=== PATIENT | female | born 1980 | race Two or more races ===

== ENCOUNTER 2020-12-15 02:11 | Emergency (ER) | payer OTHER ==
[~2020-12-15] VITALS: Ht 149.9 cm; Wt 48.5 kg
[2020-12-15] MEDS ORDERED: LEVSIN/SL0.125 MG SL (12:29)
[2020-12-15] MEDS ORDERED: PEPCID AC20 MG PO (12:29)
== END 2020-12-15 13:00 | disposition home or self-care (01) ==
LOC: ER 02:11
DX: K29.70 Gastritis, unspecified, without bleeding (principal); R10.13 Epigastric pain

== ENCOUNTER 2025-05-19 07:36 | Outpatient (CLI) | payer OTHER ==
[~2025-05-19 07:36] MED LIST: ETODOLAC300 MG PO; LEVSIN/SL0.125 MG SL; MEDROLPACK PO; NABUMETONE750 MG PO; PEPCID AC20 MG PO
== END 2025-05-19 07:47 | disposition home or self-care (01) ==
LOC: MRI 07:36
PROVIDERS: ATTEND Student in an Organized Health Care Education/Training Program
DX: R10.2 Pelvic and perineal pain (principal); R00.8 Other abnormalities of heart beat
CPT/HCPCS: 72197; 74183